=== PATIENT | female | born 1980 | race Caucasian/White ===

== ENCOUNTER 2023-04-12 16:45 | Day surgery (SDC) | payer OTHER ==
[2023-04-12 17:16] VITALS: BMI 37.8
[2023-04-12] MEDS ORDERED: hydrALAZINE 20 MG/ML VIAL SLOW IVP PRN (17:27)
== END 2023-04-12 18:38 | disposition home or self-care (01) ==
LOC: CSHLD/OP 16:45
PROVIDERS: ATTEND Obstetrics & Gynecology
DX: Z36.89 Encounter for other specified antenatal screening (principal); O09.523 Supervision of elderly multigravida, third trimester; O36.5930 Maternal care for other known or suspected poor fetal growth, third trimester, not applicable or unspecified; Z79.899 Other long term (current) drug therapy; Z3A.38 38 weeks gestation of pregnancy
CPT/HCPCS: 76819

== ENCOUNTER 2023-04-15 05:35 | Inpatient (IN) | payer OTHER ==
[2023-04-15 06:25] VITALS: BMI 37.8
[2023-04-15] MEDS ORDERED: Promethazine HCl 25 MG/ML VIAL IM PRN (06:45)
[2023-04-15] MEDS ORDERED: Bicitra 30 ML UDCUP PO PRN (06:45)
[2023-04-15] MEDS ORDERED: Carboprost 250 MCG/ML AMP IM PRN (06:45)
[2023-04-15] MEDS ORDERED: Ondansetron PF 4 MG/2 ML Vial IVP PRN ×2 (06:45→10:17)
[2023-04-15] MEDS ORDERED: Diphenoxylate HCl/Atropine Tablet PO PRN (06:45)
[2023-04-15] MEDS ORDERED: hydrALAZINE 20 MG/ML VIAL SLOW IVP PRN ×2 (06:45→09:11)
[2023-04-15 07:04] LABS: Hematocrit 32.7 % (34.9-44.5); Hemoglobin 11.7 g/dL (12.0-15.5); Mean Corpuscular HGB CONC 35.8 g/dL (32.0-36.0); Mean Corpuscular Volume 89.3 fl (81.6-98.3); Mean Platelet Volume 11.1 fl (7.4-10.4); Platelet Count 214 10x3/uL (150-450); RBC Distribution Width 13.3 % (11.5-14.5); Red Blood Cell (RBC) Count 3.66 10x6/uL (3.90-5.03)
[2023-04-15] MEDS: CEFAZOLIN 2 GM in Sodium Chloride 0.9% 100 ML IVPB SCH (07:23)
[2023-04-15] MEDS: Famotidine/PF 20 mg/2ml Vial SLOW IVP PRN (07:24)
[2023-04-15 07:31] LABS: Syphilis Antibody Nonreactive (Nonreactive); Syphilis Antibody Index 0.07 S/CO (<1.00 Non-Reactive)
[2023-04-15 07:32] LABS: HBSAg Index 0.21 S/CO (0-0.99); Hep B Surf Ag - L&D Non-Reactive S/CO (NonReactive)
[2023-04-15] MEDS ORDERED: Acetaminophen 325 MG TAB PO PRN (09:11)
[2023-04-15] MEDS ORDERED: Simethicone Chewable 80 MG TAB PO PRN (09:11)
[2023-04-15] MEDS ORDERED: Bisacodyl 10 MG SUPP PR PRN (09:11)
[2023-04-15] MEDS ORDERED: Lanolin Ointment 7 GM TUBE TOP PRN (09:11)
[2023-04-15] MEDS: Morphine PF 10 MG/10 ML VIAL ONE (10:05)
[2023-04-15] MEDS: CEFAZOLIN 2 GM VIAL ONE (10:06)
[2023-04-15] MEDS: ePHEDrine Sulfate 50 MG/10 ML VIAL ONE (10:06)
[2023-04-15] MEDS: Dexmedetomidine 200 MCG/2 ML VIAL ONE (10:06)
[2023-04-15] MEDS: Phenylephrine 40 MG/NS 250 ML 250 ML ONE (10:06)
[2023-04-15] MEDS: Oxytocin 10 UNITS/ML VIAL ONE (10:06)
[2023-04-15] MEDS ORDERED: Meperidine HCl/PF 25 MG (1 mL) VIAL SLOW IVP PRN (10:17)
[2023-04-15] MEDS ORDERED: Morphine 4 MG/ML VIAL SLOW IVP PRN (10:17)
[2023-04-15] MEDS ORDERED: HYDROmorphone 0.5 MG/0.5 ML SYRINGE SLOW IVP PRN (10:17)
[2023-04-15] MEDS: fentaNYL 50 mcg/mL 1 mL Vial SLOW IVP PRN ×2 (10:33→12:36)
[2023-04-15] MEDS: Oxytocin 30 units/NS 500 ML 500 ML IV SCH (10:57)
[2023-04-15] MEDS: Ketorolac Tromethamine 30 MG (1 mL) VIAL IVP SCH ×2 (10:57→17:09)
[2023-04-15] MEDS: Methylergonovine 0.2 MG/ML VIAL IM PRN (11:03)
[2023-04-15] MEDS: Misoprostol 200 MCG TAB PR PRN (11:04)
[2023-04-15] MEDS: Tranexamic Acid 1,000 MG/10 ML VIAL IVP PRN (12:10)
[2023-04-15 12:15] LABS: D-Dimer Test 8.75 mcg/mL (0.19-0.50); INR-International Normal Ratio 0.9; PTT 29.2 sec (22.0-33.0); Prothrombin Time 9.7 sec (9.5-12.1)
[2023-04-15] MEDS: Erythromycin Base 0.5% Oint 1 GM TUBE ONE (13:26)
[2023-04-15] MEDS: Phytonadione Neonatal 1 MG/0.5 ML AMP ONE (13:26)
[2023-04-15] MEDS: Boostrix 0.5 ML (Tdap) VIAL (>/=7 yrs of age) IM ONE (14:47)
[2023-04-15] MEDS: Ibuprofen 800 MG TAB PO SCH (14:48)
[2023-04-15] MEDS: Acetaminophen 500 MG TAB PO SCH (14:48)
[2023-04-15] MEDS: Ketorolac Tromethamine 30 MG (1 mL) VIAL ONE (17:09)
[2023-04-16 03:31] LABS: Hematocrit 24.4 % (34.9-44.5); Hemoglobin 8.5 g/dL (12.0-15.5); Mean Corpuscular HGB CONC 34.8 g/dL (32.0-36.0); Mean Corpuscular Hemoglobin 31.7 pg (27.0-33.0); Mean Platelet Volume 11.3 fl (7.4-10.4); Platelet Count 157 10x3/uL (150-450); RBC Distribution Width 13.3 % (11.5-14.5); Red Blood Cell (RBC) Count 2.68 10x6/uL (3.90-5.03); White Blood Cell (WBC) Count 14.5 10x3/uL (3.5-10.5)
[2023-04-16] MEDS: HYDROcodone/Acetaminophen 5/325 mg Tablet PO PRN ×2 (04:24→23:34)
[2023-04-16] MEDS: Prenatal Vitamin 1 TAB PO SCH (08:50)
[2023-04-16] MEDS: Docusate 100 MG CAP PO PRN (08:50)
[2023-04-16] MEDS ORDERED: Polyethylene Glycol 3350 17 GM Packet PO PRN (10:20)
[2023-04-16] MEDS: Ferrous Sulfate 325 MG TAB PO SCH (11:13)
[2023-04-16] MEDS: Ibuprofen 800 MG TAB PO SCH (21:21)
[2023-04-17 08:22] VITALS: BP 124/65; TEMP 98.6
== END 2023-04-17 14:50 | disposition home or self-care (01) | DRG 787 ==
LOC: CSHLD 05:35 → CSHPP 13:39
PROVIDERS: ADMIT Family Medicine; ATTEND Family Medicine
PROC: 10D00Z1 Extraction of Products of Conception, Low, Open Approach (ICD-10-PCS; principal; 2023-04-15)
DX: O34.211 Maternal care for low transverse scar from previous cesarean delivery (principal); O72.1 Other immediate postpartum hemorrhage; O36.5930 Maternal care for other known or suspected poor fetal growth, third trimester, not applicable or unspecified; Z3A.38 38 weeks gestation of pregnancy; Z37.0 Single live birth; O99.214 Obesity complicating childbirth; E66.9 Obesity, unspecified; O99.02 Anemia complicating childbirth; D64.9 Anemia, unspecified; Z88.2 Allergy status to sulfonamides
CPT/HCPCS: 36415; 51702; 85027; 85049; 85300; 85362; 85384; 85610; 85730; 86780; 86850; 86900; 86901; 87340; 88307; J1885; J2210; J2274; J2590; J3010; J3490; S0028